=== PATIENT | male | born 1990 | race Caucasian/White ===

== ENCOUNTER 2021-11-06 17:12 | Emergency (ER) | payer SELFPAY ==
[~2021-11-06] VITALS: Ht 177.8 cm; Wt 88.6 kg
[2021-11-06] MEDS ORDERED: CYCLOBENZAPRINE10 M1 PO (20:14)
[2021-11-06 20:28] VITALS: BP 150/98
== END 2021-11-06 20:45 | disposition home or self-care (01) ==
LOC: ED 17:12
DX: S13.4XXA Sprain of ligaments of cervical spine, initial encounter (principal); M54.50 Low back pain, unspecified; Z28.310 Unvaccinated for COVID-19; V48.5XXA Car driver injured in noncollision transport accident in traffic accident, initial encounter; Y92.410 Unspecified street and highway as the place of occurrence of the external cause
CPT/HCPCS: J1885; J2360